=== PATIENT | male | born 1975 | race Hispanic/Latino ===

== ENCOUNTER 2017-04-22 08:37 | Emergency (ER) | payer OTHER ==
[2017-04-22 08:49] VITALS: BP 132/86
[2017-04-22] MEDS ORDERED: XYLOCAINE 1% 20 mL INFILTRATI ONE (09:18)
[2017-04-22] MEDS ORDERED: MOTRIN PO ONE (09:18)
[2017-04-22] MEDS ORDERED: CLEOCIN IM ONE (09:18)
--- NOTE | 2017-04-22 09:23 | Emergency Department Report ---
ED ENT HPI - General Chief complaint: Skin/Abscess/Foreign Body Stated complaint: BOIL ON NECK Time Seen by Provider: 04/22/17 09:11 Source: patient Mode of arrival: Ambulatory Limitations: No Limitations - History of Present Illness Initial comments: Pt states he recently shaved. PT states on Thursday, he noticed some ingrown hairs. PT States he tried to "pick them out" Pt states since that time, he has had increase in redness and swelling. PT states this has never happened before. PT denies f/c/n/v. Pt rates his pain 5/10. MD complaint: other (abscess under chin ) Onset/Timin -: Gradual, days(s) Location: other (chin ) Severity: moderate Severity scale (0 -10): 5 Quality: aching Consistency: constant Improves with: none Worsens with: movement Associated Symptoms: denies: fever, gum swelling, toothache, pain with swallowing, sore throat - Related Data Previous Rx's Medication Instructions Recorded Last Taken Type Acetaminophen/Codeine [Tylenol #3] 1 tab PO Q6H PRN #7 tab 04/22/17 Unknown Rx Clindamycin [Clindamycin CAP] 300 mg PO Q8H #30 cap 04/22/17 Unknown Rx Allergies Allergy/AdvReac Type Severity Reaction Status Date / Time No Known Allergies Allergy Unverified 04/22/17 08:49 ED Dental HPI - General Chief complaint: Skin/Abscess/Foreign Body Stated complaint: BOIL ON NECK Time Seen by Provider: 04/22/17 09:11 Source: patient Mode of arrival: Ambulatory Limitations: No Limitations - Related Data Previous Rx's Medication Instructions Recorded Last Taken Type Acetaminophen/Codeine [Tylenol #3] 1 tab PO Q6H PRN #7 tab 04/22/17 Unknown Rx Clindamycin [Clindamycin CAP] 300 mg PO Q8H #30 cap 04/22/17 Unknown Rx Allergies Allergy/AdvReac Type Severity Reaction Status Date / Time No Known Allergies Allergy Unverified 04/22/17 08:49 ED Review of Systems ROS: Stated complaint: BOIL ON NECK Other details as noted in HPI Comment: All other systems reviewed and negative Constitutional: denies: chills, fever ENT: denies: throat pain, dental pain Respiratory: no symptoms reported Gastrointestinal: denies: abdominal pain, nausea, vomiting Skin: as per HPI, change in color (redness and swelling under chin ) ED Past Medical Hx - Past Medical History Previous Medical History?: No - Surgical History Past Surgical History?: No - Social History Smoking Status: Current Every Day Smoker Substance Use Type: None - Medications Home Medications: Home Medications Medication Instructions Recorded Confirmed Last Taken Type Acetaminophen/Codeine [Tylenol #3] 1 tab PO Q6H PRN #7 tab 04/22/17 Unknown Rx Clindamycin [Clindamycin CAP] 300 mg PO Q8H #30 cap 04/22/17 Unknown Rx ED Physical Exam - General Limitations: No Limitations General appearance: alert, in no apparent distress - Head Head exam: Present: atraumatic, normocephalic, other (3 cm flucuant abscess under chin ) - Eye Eye exam: Present: normal appearance, PERRL. Absent: conjunctival injection - ENT ENT exam: Present: normal exam, normal orophraynx, mucous membranes moist, normal external ear exam - Expanded ENT Exam Expanded Mouth exam: Present: tongue normal. Absent: drooling, trismus Teeth exam: Present: dental caries. Absent: gingival enlargement Throat exam: Positive: normal inspection. Negative: tonsillar erythema, tonsillomegaly, tonsillar exudate - Neck Neck exam: Present: full ROM. Absent: lymphadenopathy, other (superfical abscess noted under chin, + tenderness ) - Respiratory Respiratory exam: Absent: respiratory distress - Cardiovascular Cardiovascular Exam: Present: regular rate, normal rhythm - Extremities Exam Extremities exam: Present: normal inspection, full ROM - Back Exam Back exam: Present: normal inspection, full ROM - Neurological Exam Neurological exam: Present: alert, oriented X3 - Psychiatric Psychiatric exam: Present: normal affect, normal mood - Skin Skin exam: Present: warm, dry, intact ED Course Vital Signs 04/22/17 04/22/17 08:45 09:34 Temperature 97.9 F Pulse Rate 69 Respiratory 17 18 Rate Blood Pressure 132/86 O2 Sat by Pulse 100 Oximetry - Reevaluation(s) Reevaluation #1: 04/22/17 09:23 PT aware of dx and plan of care. PT gives verbal consent for I and D. Reevaluation #2: 04/22/17 10:16 Pt tolerated I and D. No immediate complications. - I & D Neck Type of Procedure: Simple Site: chin Blade Size: 11 I & D Procedure: betadine prep, sterile drapes applied, sterile dressing applied , no gauze wick placed (too small ) Progress: skin cleansed with betadine. 29 guage needle used to inject 0.5mls of lidocaine. After area was anaesthetized, 11 blade used to drain superficial abscess. Moderate amount of think purulent drainage noted. site flushed with normal saline. loculations broken up with hemostats. sterile dressing applied. - Pulse Oximetry Interpretation Digit-Finger Initial Pulse Oximetry Readin Actions Taken: none ED Medical Decision Making - Differential Diagnosis abscess Critical Care Time: No Critical care attestation.: If time is entered above; I have spent that time in minutes in the direct care of this critically ill patient, excluding procedure time. ED Disposition Clinical Impression: Abscess of chin Disposition: DC-01 TO HOME OR SELFCARE Is pt being admited?: No Does the pt Need Aspirin: No Condition: Stable Instructions: Abscess Incision and Drainage (ED), Abscess (ED) Additional Instructions: Please refrain from smoking Finish all antibiotics Return to ED in 1-2 days for recheck Return to ED if worsening or concerns Warm compresses multiple times a day. No driving or ETOH after taking Tylenol #3 No shaving at this time. Prescriptions: Acetaminophen/Codeine [Tylenol #3] 1 tab PO Q6H PRN #7 tab PRN Reason: Pain , Severe (7-10) Clindamycin [Clindamycin CAP] 300 mg PO Q8H #30 cap Referrals: PRIMARY MD ETRE [Primary Care Provider] - 3-5 Days SAM MCKOY MD [Staff Physician] - 3-5 Days [facility] [Outside] - 3-5 Days [facility] [Outside] - 3-5 Days Forms: Work/School Release Form(ED) Time of Disposition: 10:20
== END 2017-04-22 10:36 | disposition home or self-care (01) ==
LOC: ED 08:37
DX: L02.01 Cutaneous abscess of face (principal); F17.200 Nicotine dependence, unspecified, uncomplicated
CPT/HCPCS: 87116; 96372; 99282